=== PATIENT | male | born 1940 | race Two or more races ===

== ENCOUNTER 2018-04-03 06:00 | Emergency (ER) | payer OTHER ==
[~2018-04-03] VITALS: Ht 170.2 cm; Wt 78.9 kg
[2018-04-03 07:43] VITALS: BP 124/70
== END 2018-04-03 08:03 | disposition home or self-care (01) ==
LOC: EDBD 06:00 → ER 06:09
DX: S39.012A Strain of muscle, fascia and tendon of lower back, initial encounter (principal); M43.17 Spondylolisthesis, lumbosacral region; V43.52XA Car driver injured in collision with other type car in traffic accident, initial encounter; Y93.89 Activity, other specified; Y92.89 Other specified places as the place of occurrence of the external cause; Y99.8 Other external cause status
CPT/HCPCS: 70450; 72100